=== PATIENT | male | born 2000 | race Caucasian/White ===

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

== ENCOUNTER 2022-06-18 11:02 | Inpatient (IN) | payer MEDICAID, OTHER ==
[2022-06-18] MEDS ORDERED: HALOPERIDOL LACTATE 5 MG/ML 1 ML VIAL IM PRN (12:15)
[2022-06-18] MEDS ORDERED: ACETAMINOPHEN TAB 325 MG TAB PO PRN (12:15)
[2022-06-18] MEDS ORDERED: LORazepam 1 MG TAB PO PRN (12:15)
[2022-06-18] MEDS ORDERED: MAGNESIUM HYDROXIDE 2,400 MG/10 ML CUP PO PRN (12:15)
[2022-06-18] MEDS ORDERED: MAG HYDROX/AL HYDROX/SIMETH 355 ML BOTTLE PO PRN (12:15)
[2022-06-18] MEDS ORDERED: LORazepam 2 MG/ML INJ IM PRN (12:26)
[2022-06-18] MEDS ORDERED: haloperidoL 5 MG TAB PO PRN (12:27)
[2022-06-18] MEDS: NICOTINE 14MG/24HR PATCH TRANSDERM SCH (14:49)
[2022-06-18 15:36] VITALS: RESP 16
[2022-06-19 06:40] VITALS: BP 145/78; PULSE 80; TEMP 98.3
[2022-06-19] MEDS: NICOTINE 14MG/24HR PATCH TRANSDERM SCH (08:48)
[2022-06-19] MEDS ORDERED: NICOTINE 14MG/24HR PATCH TRANSDERM SCH (09:00)
[2022-06-19] MEDS ORDERED: FLUoxetine HCL 20 MG CAP PO STA (10:07)
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
[2022-06-20] MEDS ORDERED: FLUoxetine HCL 20 MG CAP PO SCH (09:00)
== END 2022-06-19 13:28 | disposition home or self-care (01) | DRG 880 ==
LOC: 3MHU 14:14
PROVIDERS: ADMIT Psychiatry & Neurology Psychiatry; ATTEND Psychiatry & Neurology Psychiatry
DX: R45.851 Suicidal ideations (principal); F41.0 Panic disorder [episodic paroxysmal anxiety]; F17.210 Nicotine dependence, cigarettes, uncomplicated; Z62.810 Personal history of physical and sexual abuse in childhood; Z63.4 Disappearance and death of family member; Z79.899 Other long term (current) drug therapy; Z91.410 Personal history of adult physical and sexual abuse; Z91.51 Personal history of suicidal behavior
CPT/HCPCS: 83036; 84443

== ENCOUNTER 2023-10-14 17:40 | Emergency (ER) | payer OTHER ==
[2023-10-14 17:58] VITALS: BP 143/86; PULSE 75; RESP 16; TEMP 98.8
--- NOTE | 2023-10-14 18:25 | ED ---
General Adult HPI - General Chief complaint: Nausea/Vomiting/Diarrhea Stated complaint: vomiting Time Seen by Provider: 10/14/23 18:07 Source: patient, RN notes reviewed, old records reviewed Mode of arrival: ambulatory Limitations: no limitations - History of Present Illness Initial comments: 23-year-old male who is otherwise healthy presenting with an episode of diarrhea followed by several episodes of vomiting. No significant abdominal pain. Patient does state his symptoms seem to be improving and he is hungry and thirsty. - Related Data Previous Rx's Medication Instructions Recorded Cephalexin [Keflex] 500 mg PO Q6HR 7 Days #28 cap 07/27/20 Benzonatate [Tessalon Perles] 200 mg PO Q8H PRN #15 capsule 08/09/20 Sulfamethox-Tmp 800-160Mg [Bactrim 2 each PO Q12HR #28 tab 12/31/20 DS 800-160 mg] FLUoxetine HCL [PROzac] 20 mg PO DAILY 15 Days cap 06/19/22 Ondansetron Odt [Zofran Odt] 4 mg PO Q8HR PRN #10 tab 10/14/23 Allergies Allergy/AdvReac Type Severity Reaction Status Date / Time SUNSCREEN Allergy Rash/Hives Uncoded 06/17/21 18:17 Review of Systems ROS Statement: Those systems with pertinent positive or pertinent negative responses have been documented in the HPI. ROS Other: All systems not noted in ROS Statement are negative. Past Medical History Past Medical History: No Reported History History of Any Multi-Drug Resistant Organisms: MRSA Date of last positivie culture/infection: 12/31/20 MRSA MDRO Source:: Left 3rd Finger Past Surgical History: No Surgical Hx Reported Past Psychological History: Anxiety Smoking Status: Current every day smoker, Vaper Past Alcohol Use History: None Reported Past Drug Use History: None Reported General Exam Limitations: no limitations General appearance: alert, in no apparent distress Head exam: Present: atraumatic, normocephalic Eye exam: Present: normal appearance, PERRL ENT exam: Present: normal exam, mucous membranes moist Neck exam: Present: normal inspection. Absent: tenderness, meningismus Respiratory exam: Present: normal lung sounds bilaterally. Absent: respiratory distress, wheezes Cardiovascular Exam: Present: regular rate GI/Abdominal exam: Present: soft, normal bowel sounds. Absent: distended, guarding, rebound, rigid Extremities exam: Present: normal inspection, normal capillary refill Neurological exam: Present: alert, oriented X3, CN II-XII intact, normal gait. Absent: motor sensory deficit Psychiatric exam: Present: normal affect Skin exam: Present: warm, dry, intact Course Vital Signs 10/14/23 17:44 Temperature 98.8 F Pulse Rate 75 Respiratory 16 Rate Blood Pressure 143/86 O2 Sat by Pulse 98 Oximetry Medical Decision Making - Medical Decision Making Was pt. sent in by a medical professional or institution (LINA Sanchez, GLUER MACHINE OPERATOR, urgent care, hospital, or usp...) When possible be specific @ -No Did you speak to anyone other than the patient for history (EMS, parent, family, police, friend...)? What history was obtained from this source @ -No Did you review nursing and triage notes (agree or disagree)? Why? @ -I reviewed and agree with nursing and triage notes Were old charts reviewed (outside hosp., previous admission, EMS record, old EKG, old radiological studies, urgent care reports/EKG's, usp records)? Report findings @ -No old charts were reviewed Differential Diagnosis (chest pain, altered mental status, abdominal pain women, abdominal pain men, vaginal bleeding, weakness, fever, dyspnea, syncope, headache, dizziness, GI bleed, back pain, seizure, CVA, palpatations, mental health, musculoskeletal)? @ -Food poisoning, gastroenteritis, viral syndrome, bowel obstruction EKG interpreted by me (3pts min.). @ -As above X-rays interpreted by me (1pt min.). @ -None done CT interpreted by me (1pt min.). @ -None done U/S interpreted by me (1pt. min.). @ -None done What testing was considered but not performed or refused? (CT, X-rays, U/S, labs)? Why? @ -None What meds were considered but not given or refused? Why? @ -None Did you discuss the management of the patient with other professionals (professionals i.e. LINA Sanchez, GLUER MACHINE OPERATOR, lab, RT, psych nurse, social director, employment evaluator/case manager, teacher, guest services officer, case technician)? Give summary @ -No Was smoking cessation discussed for >3mins.? @ -No Was critical care preformed (if so, how long)? @ -No Were there social determinants of health that impacted care today? How? (Homelessness, low income, unemployed, alcoholism, drug addiction, transportation, low edu. Level, literacy, decrease access to med. care, long-term, rehab)? @ -No Was there de-escalation of care discussed even if they declined (Discuss DNR or withdrawal of care, Hospice)? DNR status @ -No What co-morbidities impacted this encounter? (DM, HTN, Smoking, COPD, CAD, Cancer, CVA, ARF, Chemo, Hep., AIDS, mental health diagnosis, sleep apnea, morbid obesity)? @ -None Was patient admitted / discharged? Hospital course, mention meds given and route, prescriptions, significant lab abnormalities, going to OR and other pertinent info. @ -Well-appearing 23-year-old male, appears well-hydrated with stable vitals. No abdominal tenderness. He has had both diarrhea and several episodes of vomiting. Patient states his symptoms overall are improving. He is instructed on oral hydration and he is given strict return parameters. Undiagnosed new problem with uncertain prognosis? @ -No Drug Therapy requiring intensive monitoring for toxicity (Heparin, Nitro, Insulin, Cardizem)? @ -No Were any procedures done? @ -No Diagnosis/symptom? @Nausea vomiting Acute, or Chronic, or Acute on Chronic? @ -Acute Uncomplicated (without systemic symptoms) or Complicated (systemic symptoms)? @ -Default Side effects of treatment? @ -No Exacerbation, Progression, or Severe Exacerbation? @ -No Poses a threat to life or bodily function? How? (Chest pain, [place], [place], pneumonia, PE, COPD, DKA, ARF, appy, cholecystitis, CVA, Diverticulitis, Homicidal, Suicidal, threat to staff... and all critical care pts) @ -No Disposition Clinical Impression: Nausea & vomiting Disposition: HOME SELF-CARE Condition: Fair Instructions (If sedation given, give patient instructions): Acute Nausea and Vomiting (ED) Prescriptions: Ondansetron Odt [Zofran Odt] 4 mg PO Q8HR PRN #10 tab PRN Reason: Vomiting Is patient prescribed a controlled substance at d/c from ED?: No Referrals: None,Stated [Primary Care Provider] - 1-2 days Time of Disposition: 18:24
== END 2023-10-14 18:32 | disposition home or self-care (01) ==
LOC: EC 17:40
DX: R11.2 Nausea with vomiting, unspecified (principal); F17.290 Nicotine dependence, other tobacco product, uncomplicated; Z88.8 Allergy status to other drugs, medicaments and biological substances
CPT/HCPCS: 99283

== ENCOUNTER 2024-06-27 13:15 | Emergency (ER) | payer OTHER ==
[2024-06-27 13:29] VITALS: RESP 20
--- NOTE | 2024-06-27 13:42 | ED ---
URI HPI - General Chief Complaint: Upper Respiratory Infection Stated Complaint: Cough,Congestion Time Seen by Provider: 06/27/24 13:41 Source: patient, RN notes reviewed Mode of arrival: ambulatory Limitations: no limitations - History of Present Illness Initial Comments: 24-year-old male presented to ER with a chief complaint of cough and congestion. He states the past 24 hours he has been having a persistent cough, congestion and runny nose. Patient denies any fevers, chills, nausea, vomiting, abdominal pain, shortness of breath/wheezing or chest discomfort. Patient reports upon examination he would like a work note. - Related Data Previous Rx's Medication Instructions Recorded Cephalexin [Keflex] 500 mg PO Q6HR 7 Days #28 cap 07/27/20 Benzonatate [Tessalon Perles] 200 mg PO Q8H PRN #15 capsule 08/09/20 Sulfamethox-Tmp 800-160Mg [Bactrim 2 each PO Q12HR #28 tab 12/31/20 DS 800-160 mg] FLUoxetine HCL [PROzac] 20 mg PO DAILY 15 Days cap 06/19/22 Ondansetron Odt [Zofran Odt] 4 mg PO Q8HR PRN #10 tab 10/14/23 Allergies Allergy/AdvReac Type Severity Reaction Status Date / Time SUNSCREEN Allergy Rash/Hives Uncoded 06/27/24 13:29 Review of Systems ROS Statement: Those systems with pertinent positive or pertinent negative responses have been documented in the HPI. ROS Other: All systems not noted in ROS Statement are negative. Past Medical History Past Medical History: No Reported History History of Any Multi-Drug Resistant Organisms: MRSA Date of last positivie culture/infection: 12/31/20 MRSA MDRO Source:: Left 3rd Finger Past Surgical History: No Surgical Hx Reported Past Psychological History: Anxiety Smoking Status: Current every day smoker, Vaper Past Alcohol Use History: None Reported Past Drug Use History: None Reported General Exam Limitations: no limitations General appearance: alert, in no apparent distress ENT exam: Present: normal exam, normal oropharynx (mildly erythematous), mucous membranes moist, TM's normal bilaterally Neck exam: Present: normal inspection. Absent: tenderness, meningismus, lymphadenopathy Respiratory exam: Present: normal lung sounds bilaterally. Absent: respiratory distress, wheezes, rales, rhonchi, stridor Cardiovascular Exam: Present: regular rate, normal rhythm, normal heart sounds. Absent: systolic murmur, diastolic murmur, rubs, gallop, clicks Neurological exam: Present: alert, oriented X3, CN II-XII intact Skin exam: Present: warm, dry, intact, normal color. Absent: rash Course Vital Signs 06/27/24 06/27/24 06/27/24 13:28 13:32 14:41 Temperature 98 F 98.0 F Pulse Rate 96 92 Respiratory 20 20 20 Rate Blood Pressure 128/86 126/80 O2 Sat by Pulse 99 99 Oximetry Medical Decision Making - Medical Decision Making Was pt. sent in by a medical professional or institution (, [place], BARREL RIFLER, urgent care, hospital, or long term...) When possible be specific @ -No Did you speak to anyone other than the patient for history (EMS, parent, family, police, friend...)? What history was obtained from this source @ -No Did you review nursing and triage notes (agree or disagree)? Why? @ -I reviewed and agree with nursing and triage notes Were old charts reviewed (outside hosp., previous admission, EMS record, old EKG, old radiological studies, urgent care reports/EKG's, long term records)? Report findings @ -No old charts were reviewed Differential Diagnosis (chest pain, altered mental status, abdominal pain women, abdominal pain men, vaginal bleeding, weakness, fever, dyspnea, syncope, headache, dizziness, GI bleed, back pain, seizure, CVA, palpatations, mental health, musculoskeletal)? @ -COVID, RSV, influenza, viral sinusitis, pneumonia, strep pharyngitis, this list is not meant to be all-inclusive EKG interpreted by me (3pts min.). @ -None done X-rays interpreted by me (1pt min.). @ -CXR interpreted by me negative for acute process. CT interpreted by me (1pt min.). @ -None done U/S interpreted by me (1pt. min.). @ -None done What testing was considered but not performed or refused? (CT, X-rays, U/S, labs)? Why? @ -None What meds were considered but not given or refused? Why? @ -None Did you discuss the management of the patient with other professionals (professionals i.e. , PA, BARREL RIFLER, lab, RT, psych nurse, social service director, pharmacy sales assistant, teacher, senior officer, field case manager)? Give summary @ -No Was smoking cessation discussed for >3mins.? @ -I discussed smoking cessation for greater than 3 minutes. The risk of smoking were discussed with the patient including but not limited to risks of cancer, stroke, coronary artery disease and COPD. Also discussed with patient were multiple methods of quitting smoking. Lastly we discussed the financial cost of smoking. Was critical care preformed (if so, how long)? @ -No Were there social determinants of health that impacted care today? How? (Homelessness, low income, unemployed, alcoholism, drug addiction, transportation, low edu. Level, literacy, decrease access to med. care, snf, rehab)? @ -No Was there de-escalation of care discussed even if they declined (Discuss DNR or withdrawal of care, Hospice)? DNR status @ -No What co-morbidities impacted this encounter? (DM, HTN, Smoking, COPD, CAD, Cancer, CVA, ARF, Chemo, Hep., AIDS, mental health diagnosis, sleep apnea, morbid obesity)? @ -None Was patient admitted / discharged? Hospital course, mention meds given and route, prescriptions, significant lab abnormalities, going to OR and other pertinent info. @ -Discharge. 24-year-old male presented to the ER for evaluation of cough and congestion. Vitals stable. Patient in no signs of acute distress nontoxic- appearing. Exam benign. Influenza, RSV, COVID-negative. Chest x-ray negative. Work note given. Strict return parameters discussed. Patient discharged in stable condition with follow-up to PCP. Patient verbally expressed understanding and agreement with care plan. Case discussed with ED attending, Dr. Mcmillan. Undiagnosed new problem with uncertain prognosis? @ -No Drug Therapy requiring intensive monitoring for toxicity (Heparin, Nitro, Insulin, Cardizem)? @ -No Were any procedures done? @ -No Diagnosis/symptom? @ -Viral illness/acute viral sinusitis Acute, or Chronic, or Acute on Chronic? @ -Acute Uncomplicated (without systemic symptoms) or Complicated (systemic symptoms)? @ -Uncomplicated Side effects of treatment? @ -No Exacerbation, Progression, or Severe Exacerbation? @ -No Poses a threat to life or bodily function? How? (Chest pain, [place], [place], pneumonia, PE, COPD, DKA, ARF, appy, cholecystitis, CVA, Diverticulitis, Homicidal, Suicidal, threat to staff... and all critical care pts) @ -No - Lab Data Lab Results 06/27/24 Range/Units 13:41 Influenza Type A (PCR) Not Detected (Not Detectd) Influenza Type B (PCR) Not Detected (Not Detectd) RSV (PCR) Not Detected (Not Detectd) SARS-CoV-2 (PCR) Not Detected (Not Detectd) - Radiology Data Radiology results: report reviewed, image reviewed Disposition Clinical Impression: Acute viral sinusitis, Viral illness Disposition: HOME SELF-CARE Condition: Stable Additional Instructions: Follow-up PCP. Return to the ER for any new or worsening concerns. Is patient prescribed a controlled substance at d/c from ED?: No Referrals: None,Stated [Primary Care Provider] - 1-2 days Forms: Area PCPs Time of Disposition: 14:40
--- NOTE | 2024-06-27 13:51 | XR ---
2 view chest HISTORY: Cough COMPARISON: 02/12/2019 TECHNIQUE: PA and lateral views chest obtained. FINDINGS: The lungs are clear of consolidative, interstitial or masslike opacity. There is no pleural effusion, pleural thickening or pneumothorax. The heart, pulmonary vasculature, mediastinum and ree are within normal limits. The osseous structures and soft tissues of the thorax are intact. IMPRESSION: No significant abnormality. No acute cardiopulmonary disease. [facility], , 06/27/2024 1:49 PM
[2024-06-27 14:57] VITALS: BP 126/80; PULSE 92; TEMP 98
== END 2024-06-27 14:44 | disposition home or self-care (01) ==
LOC: EC 13:15
DX: J01.90 Acute sinusitis, unspecified (principal); B97.89 Other viral agents as the cause of diseases classified elsewhere; F17.290 Nicotine dependence, other tobacco product, uncomplicated; Z88.8 Allergy status to other drugs, medicaments and biological substances
CPT/HCPCS: 71046; 87636; 99283; 99406

== ENCOUNTER 2024-11-29 19:07 | Emergency (ER) | payer SELFPAY ==
[2024-11-29 19:12] VITALS: TEMP 98
[2024-11-29] MEDS: PROPARACAINE 0.5% OPHTH DROPS 15 ML BTL LEFT EYE STA (19:38)
[2024-11-29] MEDS: FLUORESCEIN STRIPS 1 MG STRIP LEFT EYE ONE (19:38)
[2024-11-29] MEDS: ACETAMINOPHEN TAB 500 MG TAB PO STA (19:38)
[2024-11-29] MEDS: DIPH,PERTUS(ACELL)TETVAC-LF 0.5 ML VIAL IM ONE (19:39)
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
[2024-11-29] MEDS: HYDROmorphone 0.5 MG/0.5 ML SYRINGE IVP STA (21:00)
[2024-11-29] MEDS: SODIUM CHLORIDE 0.9% 1,000 ML IV ONE (21:01)
[2024-11-29] MEDS: TOPICAL SKIN ADHESIVE 1 EACH AMP TOPICAL ONE (21:09)
[2024-11-29] MEDS: AMOXIC-POT CLAV 875-125MG 1 EACH TAB PO STA (23:01)
[2024-11-29 23:25] VITALS: BP 132/76; PULSE 50; RESP 14
== END 2024-11-29 23:26 | disposition other institution (70) ==
LOC: EC 19:07
DX: S02.32XA Fracture of orbital floor, left side, initial encounter for closed fracture (principal); S06.2X0A Diffuse traumatic brain injury without loss of consciousness, initial encounter; F17.290 Nicotine dependence, other tobacco product, uncomplicated; Z88.8 Allergy status to other drugs, medicaments and biological substances; Z23 Encounter for immunization; W22.8XXA Striking against or struck by other objects, initial encounter
CPT/HCPCS: 70486; 70450; 90715; 99284; 90471; 96374; J1171